=== PATIENT | male | born 1975 | race Caucasian/White ===

== ENCOUNTER 2016-07-08 23:23 | Emergency (ER) | payer OTHER ==
[2016-07-08 23:36] VITALS: TEMP 97.7
--- NOTE | 2016-07-08 23:51 | EDPHY ---
H & P Stated Complaint: laceration to chn s/p fainting hiting sink Time Seen by Provider: 07/08/16 23:42 HPI/ROS: CHIEF COMPLAINT: Chin laceration after syncope HISTORY OF PRESENT ILLNESS: 41-year-old male arrives via private vehicle stating that he ate edible marijuana this evening, stood up to go to the bathroom had a syncopal episode impacting his chin against the counter. He woke on the floor few seconds later. No nausea or vomiting. No antecedent symptoms such as headache, visual disturbance, chest pain, palpitations. He is only complaining of chin laceration. He denies dental malalignment, TMJ pain, mandible pain, midline C-spine pain, peripheral paresthesia, weakness, numbness , nausea, vomiting, incontinence, oral trauma. PRIMARY CARE PROVIDER: REVIEW OF SYSTEMS: A ten point review of systems was performed and is negative with the exception of the items mentioned in the HPI PAST MEDICAL/SURGICAL HISTORY: Positive for marijuana use this evening SOCIAL HISTORY: denies alcohol use at time of incident, positive marijuana PHYSICAL EXAM 1) GENERAL: Well-developed, well-nourished, alert and oriented. Appears to be in no acute distress. Answering questions appropriately. 2) HEAD: Normocephalic, atraumatic 3) HEENT: Pupils equal, round, reactive to light bilaterally. Negative Horners. Nasopharynx, oropharynx, clear. No deformity or angulation of nose. No septal hematoma. No rhinorrhea. No oral trauma. Ears bilaterally with normal tympanic membranes. No hemotympanum. No fluid or blood in the external auditory canal. No raccoon eyes. No Harvey sign. Teeth are normally aligned with no gross malocclusion, TMJ bilaterally nontender, facial bones nontender including the zygomatic arch, maxilla mandible. Inferior chin 4 cm well- demarcated laceration 4) NECK: No cervical collar is on. Posterior cervical spine is nontender, no stepoff, no effusion. Full range of motion which does not elicit any midline cervical spine pain, no posterior midline tenderness, no step-off. 5) LUNGS: Clear to auscultation bilaterally, no wheezes, no rhonchi, no retractions. No obvious signs of trauma. No chest wall pain. No flaring, no grunting. Moving symmetrically. No crepitus. 6) HEART: Regular rate and rhythm, 7) ABDOMEN: No guarding, no rebound, no focal tenderness, no peritoneal signs, no signs of trauma, no ecchymosis 8) MUSCULOSKELETAL: Moving all extremities, no focal areas of tenderness, no obvious trauma. 9) BACK: No midline vertebral tenderness, no fluctuance, no step-off, no obvious trauma, no visual or palpable abnormality. 10) SKIN: No laceration. No abrasion DIFFERENTIAL DIAGNOSIS: [in no particular order including but limited to marijuana use, CVA, cardiac arrhythmia - Medical/Surgical History Hx Asthma: No Hx Chronic Respiratory Disease: No Hx Diabetes: No Hx Cardiac Disease: No Hx Renal Disease: No Hx Cirrhosis: No Hx Alcoholism: No Hx HIV/AIDS: No Hx Splenectomy or Spleen Trauma: No Other PMH: anxiety, gerd - Social History Smoking Status: Never smoked Constitutional: Initial Vital Signs Temperature (C) 36.5 C 07/08/16 23:33 Heart Rate 63 07/08/16 23:33 Respiratory Rate 16 07/08/16 23:33 Blood Pressure 106/80 07/08/16 23:33 O2 Sat (%) 98 07/08/16 23:33 O2 Delivery Mode Room Air Allergies/Adverse Reactions: No Known Allergies Allergy (Unverified 07/08/16 23:30) Home Medications: Medication Instructions Recorded Azelastine HCl 07/08/16 Escitalopram Oxalate [Lexapro] 07/08/16 Flunisolide [Nasarel] 25 ml NS 07/08/16 PRILOSEC 07/08/16 Medical Decision Making Procedures: Procedure: Laceration repair. I explained the indications, risks and benefits for both laceration repair and anesthetic administration. Verbal consent was obtained from the patient . The laceration on the chin was anesthetized using 0.5% bupivicaine with epinephrine . After anesthetic administered the patient was observed for a period of time and had no apparent adverse effects. The wound was cleaned, prepped, draped in normal sterile fashion and explored to its base. No foreign body seen, no foreign bodies palpated. There were deep structures involved. The wound was repaired with 3 simple interrupted 5 0 Vicryl subcutaneous sutures and 11 simple interrupted 6 0 silk sutures . The wound repair was complex. The procedure was performed by myself. Patient has been informed that scarring will occur, although efforts have been made to minimize this. Departure - Departure Disposition: Home, Routine, Self-Care Clinical Impression: Chin laceration Qualifiers: Encounter type: initial encounter Qualified Code(s): S01.81XA - Laceration without foreign body of other part of head, initial encounter Condition: Good Instructions: Care For Your Stitches (ED), Laceration (ED) Additional Instructions: Be cautious with marijuana use in the future. Referrals: Return, to the ER in 5 days for suture removal [Other] - As per Instructions
[2016-07-09 00:50] VITALS: BP 110/72; O2SAT 95
[2016-07-13 20:52] VITALS: PULSE 70; RESP 14
== END 2016-07-09 00:50 | disposition home or self-care (01) ==
PROC: 0HQ1XZZ Repair Face Skin, External Approach (ICD-10-PCS; principal; 2016-07-08)
DX: S01.81XA Laceration without foreign body of other part of head, initial encounter (principal); W22.8XXA Striking against or struck by other objects, initial encounter; Y92.002 Bathroom of unspecified non-institutional (private) residence as the place of occurrence of the external cause